=== PATIENT | female | born 2000 | race Two or more races ===

== ENCOUNTER 2025-09-25 14:50 | Emergency (ER) | payer OTHER, MEDICAID ==
[~2025-09-25] VITALS: Ht 157.5 cm; Wt 62.0 kg
[2025-09-25 14:56] VITALS: O2SAT 98
[2025-09-25 15:45] LABS: BASOPHILS % 0.3 % (0.0-2.0); EOSINOPHILS % 1.4 % (0.0-5.0); HEMATOCRIT. 37.2 % (36.0-48.0); HEMOGLOBIN. 12.8 g/dL (12.0-16.0); LYMPHOCYTES % 30.9 % (20.0-50.0); MEAN PLATELET VOLUME 8.4 fl (7.4-10.4); MONOCYTES % 6.5 % (2.0-8.0); NEUTROPHILS % 60.9 % (40.0-76.0); PLATELET 247 x1000/uL (130-400); RED BLOOD CELL COUNT 3.94 mill/uL (4.2-5.4); RED CELL DISTRIBUTION WIDTH 12.1 % (11.6-14.6)
[2025-09-25 15:55] LABS: *AMPHETAMINES SCREEN URINE NEGATIVE (NEGATIVE); *BARBITURATES SCREEN URINE NEGATIVE (NEGATIVE); *BENZODIAZEPINES SCREEN URINE NEGATIVE (NEGATIVE); *COCAINE SCREEN URINE NEGATIVE (NEGATIVE); CANNABINOID URINE SCREEN NEGATIVE (NEGATIVE); ECSTASY MDMA SCREEN URINE NEGATIVE (NEGATIVE); METHADONE URINE SCREEN NEGATIVE (NEGATIVE); OPIATES URINE SCREEN NEGATIVE (NEGATIVE); PHENCYCLIDINE URINE SCREEN NEGATIVE (NEGATIVE)
[2025-09-25 15:56] LABS: CREATININE 0.6 mg/dL (0.6-1.0); UREA NITROGEN BLOOD 9 mg/dL (9-23)
[2025-09-25 15:57] LABS: ETHANOL BLOOD < 10 mg/dL (<10)
[2025-09-25 15:58] LABS: ASPARTATE AMINOTRANSFERASE 14 IU/L (<34)
[2025-09-25 15:59] LABS: BILIRUBIN DIRECT 0.1 mg/dL (<=3.0); BILIRUBIN TOTAL 0.4 mg/dL (0.1-1.0); PROTEIN TOTAL 6.8 g/dL (6.0-8.3)
[2025-09-25 16:03] LABS: HCG SCREEN NEGATIVE
[2025-09-26 01:13] LABS: CREATININE 0.8 mg/dL (0.6-1.0); UREA NITROGEN BLOOD 11 mg/dL (9-23)
[2025-09-26 01:15] LABS: ASPARTATE AMINOTRANSFERASE 12 IU/L (<34)
[2025-09-26 01:16] LABS: BILIRUBIN TOTAL 0.3 mg/dL (0.1-1.0); PROTEIN TOTAL 6.1 g/dL (6.0-8.3)
[2025-09-26] MEDS: SODIUM CHLORIDE 0.9% 1,000 ML IV ONE (01:45)
[2025-09-26 20:21] VITALS: BP 103/58; PULSE 59; RESP 14; TEMP 36.7; O2SAT 99
== END 2025-09-26 20:50 ==
LOC: ER 14:50
DX: T14.91XA Suicide attempt, initial encounter (principal); T50.902A Poisoning by unspecified drugs, medicaments and biological substances, intentional self-harm, initial encounter; F32.A Depression, unspecified; Z91.52 Personal history of nonsuicidal self-harm; Z20.822 Contact with and (suspected) exposure to COVID-19; Y92.89 Other specified places as the place of occurrence of the external cause
CPT/HCPCS: 80076; 80048; 80307; 84703; 85025; 36415 ×2; 93005; 99285; 87426; 80053; 96360; G0480; J7030; Z7610; 80305; 80320; 80329; A4606